=== PATIENT | female | born 1950 | race Caucasian/White ===

== ENCOUNTER 2021-06-22 19:33 | Emergency (ER) | payer OTHER ==
[~2021-06-22] VITALS: Ht 160 cm; Wt 63.5 kg
[2021-06-22 19:54] VITALS: BP_SYST 147
[2021-06-22] MEDS ORDERED: LIDOCAINE 1%, 20 ML MDV 20 ML ONE (20:09)
[2021-06-22] MEDS ORDERED: LIDOCAINE 1% 10 MG/ML, 20 ML MDV INJ ONE (20:15)
[2021-06-22] MEDS ORDERED: IBUP-1969 PO (21:53)
[2021-06-22] MEDS ORDERED: TRAM50TA2 PO (21:53)
[2021-06-22 22:15] VITALS: BP_SYST 147
== END 2021-06-22 22:10 | disposition home or self-care (01) ==
LOC: SED 19:33
DX: S92.411A Displaced fracture of proximal phalanx of right great toe, initial encounter for closed fracture (principal); I10 Essential (primary) hypertension; Z79.899 Other long term (current) drug therapy; W18.39XA Other fall on same level, initial encounter; Y93.89 Activity, other specified; Y92.89 Other specified places as the place of occurrence of the external cause; Y99.8 Other external cause status
CPT/HCPCS: 28495; 73660; 99284; J2001

== ENCOUNTER 2021-12-19 19:57 | Emergency (ER) | payer OTHER ==
[~2021-12-19] VITALS: Ht 157.5 cm; Wt 63.5 kg
[~2021-12-19 19:57] MED LIST: IBUP-1969 PO; TRAM50TA2 PO
[2021-12-19 20:02] VITALS: BP_SYST 138
--- NOTE | 2021-12-19 20:05 | NUR ---
PATIENT HAD COLONOSCOPY EARLIER THIS MORNING AND HAS HAD RECTAL BLEEDING X 4 EPISODES SINCE THEN. NO PAIN PRESENT.
[2021-12-19 21:15] LABS: BASOPHILS % (AUTO) 0.4 % (0.0-2.0); EOSINOPHILS # (AUTO) 0.2 K/uL (0.0-0.4); EOSINOPHILS % (AUTO) 2.5 % (0.0-4.0); HEMATOCRIT 38.8 % (36-48); HEMOGLOBIN 13.1 g/dL (12.0-16.0); LYMPHOCYTES # (AUTO) 1.9 K/uL (1.0-5.5); MEAN CORPUSCULAR HEMOGLOBIN 30 pg (27-31); MEAN CORPUSCULAR HGB CONC 34 % (32-36); MEAN CORPUSCULAR VOLUME 89 fL (79.0-98.0); MONOCYTES # (AUTO) 0.5 K/uL (0.0-1.0); MONOCYTES % (AUTO) 7.1 % (1.7-9.3); NEUTROPHILS # (AUTO) 4.4 K/uL (1.8-7.7); PLATELET COUNT (AUTO) 218 K/uL (130-430); RED BLOOD CELL COUNT(AUTO) 4.37 MIL/uL (4.2-6.2); RED CELL DISTRIBUTION WIDTH 13.3 % (9.0-15.0)
[2021-12-19 21:23] LABS: ANION GAP 3 (5-15); CHLORIDE 108 mmol/L (98-107); CREATININE 0.92 mg/dL (0.55-1.30); GLUCOSE 105 mg/dL (70-99); POTASSIUM 3.8 mmol/L (3.5-5.1); SODIUM SERUM 141 mmol/L (136-145); UREA NITROGEN, BLOOD 10 mg/dL (8-21)
[2021-12-19 21:38] LABS: ALANINE AMINOTRANSFERASE 19 U/L (12-78); ALBUMIN 3.3 g/dL (3.4-4.8); ASPARTATE AMINOTRANSFERASE 18 U/L (10-37); TOTAL BILIRUBIN 0.5 mg/dL (0.0-1.0)
--- NOTE | 2021-12-19 22:25 | NUR ---
[facility] FELIPE PT LEFT WITHOUT DISCHARGE PAPERWORK/ AFTERCARE. AFTER SPEAKING WITH DR. FIGUEROA OF PT'S HEALTHCARE AND FOLLOW UP WITH PMD. AMB WITH DAUGHTER TO LOBBY/ CAR WITHOUT DISCHARGE PAPERWORK.
== END 2021-12-19 22:30 | disposition home or self-care (01) ==
LOC: SED 19:57
DX: K92.2 Gastrointestinal hemorrhage, unspecified (principal); R53.1 Weakness; E78.5 Hyperlipidemia, unspecified; I10 Essential (primary) hypertension; Z88.1 Allergy status to other antibiotic agents; Z79.899 Other long term (current) drug therapy
CPT/HCPCS: 36415; 80053; 85025; 86886; 86900; 86901; 99283